=== PATIENT | female | born 1965 | race African-American/Black ===

== ENCOUNTER 2016-10-25 12:09 | Emergency (ER) | payer SELFPAY ==
[~2016-10-25] VITALS: Ht 165.1 cm; Wt 113.6 kg
[~2016-10-25 12:09] MED LIST: DIAZ5 PO; LORTA5 PO
[2016-10-25 12:11] VITALS: BP 199/88; PULSE 80; RESP 20; TEMP 98.2; O2SAT 97
--- NOTE | 2016-10-25 13:05 | PD ---
HPI Chief Complaint: Back pain Time Seen by Provider: 13:03 Travel History International Travel<30 days: No Contact w/Intl Traveler<30days: No Traveled to known affect area: No History of Present Illness HPI 50-year-old female with history of depression presents to the ED for evaluation of "months long" history of low back pain. Patient can identify no acute injury or overuse at the onset of symptoms. She states that the pain radiates down the legs bilaterally, is worse on the left than the right. She endorses tingling in the left fourth and fifth toes. She denies saddle anesthesia, incontinence, numbness, tingling, weakness, limitations to range of motion of the extremity. She has been treating with [id number] medications without improvement of symptoms. [facility] Past Medical History Depression: Yes Diabetes: No Diminished Hearing: No ?: Not : 3 Para: 2 Miscarriage: 1 : 2 Past Surgical History Section: Yes Social History Alcohol Use: Yes (occasionaly) Tobacco Use: No Substance Use: No Allergies-Medications (Allergen,Severity, Reaction): Coded Allergies: Latex (Unverified Allergy, Unknown, 10/25/16) Reported Meds & Prescriptions Reported Meds & Active Scripts Active Naprosyn (Naproxen) 500 Mg Tab 500 Mg PO BID Flexeril (Cyclobenzaprine HCl) 10 Mg Tab 10 Mg PO TID Review of Systems Except as stated in HPI: all other systems reviewed are Neg Physical Exam Narrative GENERAL: Well-nourished, well-developed obese black female in no acute distress. SKIN: Warm and dry. HEAD: Normocephalic. EYES: No scleral icterus. No injection or drainage. NECK: Supple, trachea midline. No JVD or lymphadenopathy. CARDIOVASCULAR: Regular rate and rhythm without murmurs, gallops, or rubs. 2+ DP and radial pulses bilaterally. RESPIRATORY: Breath sounds equal bilaterally. No accessory muscle use. GASTROINTESTINAL: Abdomen protuberant, soft, non-tender, nondistended. Active bowel sounds. MUSCULOSKELETAL: No cyanosis, or edema. Patient maintains strong, active, painless motion the bilateral lower extremities. Normal patellar reflexes. NEUROLOGICAL: Awake and alert. Cranial nerves II through XII intact. Motor and sensory grossly within normal limits. 5/5 dorsi flexion, plantar flexion, knee flexion, hip flexion. Normal speech. BACK: No obvious deformity. No CVA tenderness. No midline tenderness to palpation. Tender to palpation of the paraspinal musculature in the lumbar area on the left side. Data Data Last Documented VS Vital Signs Date Time Temp Pulse Resp B/P Pulse Ox O2 Delivery O2 Flow Rate FiO2 10/25/16 12:11 98.2 80 20 199/88 97 Orders Ketorolac Inj (Toradol Inj) (10/25/16 13:30) Orphenadrine Inj (Norflex Inj) (10/25/16 13:30) MDM Medical Decision Making Medical Screen Exam Complete: Yes Emergency Medical Condition: Yes Differential Diagnosis Lumbago versus radiculopathy versus acute on chronic back pain versus sciatica versus muscle spasm versus other Narrative Course 50-year-old female with history of depression presents to the ED for evaluation of "months long" history of low back pain. Patient can identify no acute injury or overuse at the onset of symptoms. Pain radiates the legs bilaterally , left greater than right. Endorses tingling in the left fourth and fifth toes. Denies saddle anesthesia, incontinence numbness, tingling, weakness of the lower extremity. Vitals reviewed. Physical exam reveals an obese black female in no acute distress. No midline tenderness to palpation. Mild tenderness to palpation of the paraspinal musculature in the left lumbar area. 5/5 strength on dorsiflexion, plantar flexion, knee flexion and hip flexion. Normal patellar reflexes bilaterally. Sensation intact to light touch distally. The patient initially told triage that she was having abdominal pain. I questioned her about this extensively. She denies abdominal pain. Abdominal exam is unremarkable. This is sciatica, possibly an element of muscle spasm. Patient was administered IM Toradol, Flexeril. She was provided with prescriptions for a brief course of Flexeril and anti-inflammatories. She is instructed to return to normal, gentle activity as tolerated, cautioned not to spend much time in bed, follow up with the primary care provider and neurologist should symptoms persist. We discussed red flag symptoms, reasons to return to the ED. She indicated understanding of the instructions. She is amenable to plan of care. She is stable and discharged home. Diagnosis Primary Impression: Sciatic neuralgia Qualified Code: M54.31 - Bilateral sciatica Referrals: Neurologist Primary Care Physician Patient Instructions: General Instructions, Sciatica (ED) Additional Instructions: Rest, hydrate. Resume normal, gentle activities as tolerated. No strenuous physical activities, heavy weight bearing for the next few days A mixture of rest and activity as best for back pain. Do not lie in bed all day , this can make back pain worse. Take Naprosyn as prescribed beginning tomorrow. Take Flexeril as prescribed. Do not drive while taking Flexeril Applying ice or heat to areas with sore muscles may help to improve your pain. Do not apply ice/ heat for longer than 20 m/h. Follow-up with your primary care provider or neurologist this week. Return to the ED should red flag symptoms occur as discussed. Return to the ED for any urgent or emergent medical condition. Med/Other Pt SpecificInfo: Prescription(s) given Scripts Naproxen (Naprosyn)500 Mg [id number] Mg PO BID #20 TAB Ref 0 Prov:Hebert Joseph MD 10/25/16 Cyclobenzaprine (Flexeril)10 Mg Tab10 Mg PO TID #15 TAB Ref 0 Prov:Hebert Joseph MD 10/25/16 Disposition: 01 DISCHARGE HOME Condition: Stable Umm Munson Oct 25, 2016 13:04
[2016-10-25] MEDS ORDERED: CYCL1TAB29 PO (13:27)
[2016-10-25] MEDS ORDERED: NAPR500 PO (13:27)
[2016-10-25] MEDS ORDERED: ORPHENADRINE INJ 60 MG/2 ML AMP IM ONE (13:30)
[2016-10-25] MEDS ORDERED: KETOROLAC TROMETHAMINE 60 MG/2 ML (IM) VIAL IM ONE (13:30)
== END 2016-10-25 14:06 | disposition home or self-care (01) ==
LOC: NETRI 12:09
DX: M54.31 Sciatica, right side (principal); M54.32 Sciatica, left side; Z86.59 Personal history of other mental and behavioral disorders
CPT/HCPCS: 96372; 99283; J1885; J2360

== ENCOUNTER 2017-02-25 01:14 | Emergency (ER) | payer SELFPAY ==
[~2017-02-25] VITALS: Ht 165.1 cm; Wt 150.0 kg
[~2017-02-25 01:14] MED LIST changes: +CYCL1TAB29 PO; -DIAZ5 PO; -LORTA5 PO; +NAPR500 PO
[2017-02-25 01:16] VITALS: BP 230/101; PULSE 103; RESP 20; TEMP 98.9; O2SAT 97
[2017-02-25 02:15] VITALS: BP 227/92
--- NOTE | 2017-02-25 02:38 | PD ---
HPI Chief Complaint: Pain: Acute or Chronic Time Seen by Provider: 02:15 Travel History International Travel<30 days: No Contact w/Intl Traveler<30days: No Traveled to known affect area: No History of Present Illness HPI 51-year-old female here for evaluation of right hip pain. The patient states that the pain has been going on for a long time, however tonight when she asked her neighbor for an aspirin, her neighbor told her that she did not have an aspirin and that she should go to the emergency department for evaluation of this hip pain. The patient denies trauma. Patient reports the pain is constant , worse with movement and palpation as well as ambulation. She is also had some dysuria and increased urinary frequency. No urinary incontinence or retention. No paresthesias or motor deficits. Blood pressure is notably elevated. Patient reports history of high blood pressure, however she does not follow with a primary care physician. She denies chest pain or dyspnea. No headache or visual disturbances. No vaginal discharge or bleeding. PFSH Past Medical History Medical History: Denies Significant Hx Depression: Yes Diabetes: No Diminished Hearing: No ?: Not Menopausal: Yes : 3 Para: 2 Miscarriage: 1 : 2 Past Surgical History Surgical History: No Previous Surgery Section: Yes Social History Alcohol Use: Yes (occasionaly) Tobacco Use: No Substance Use: No Allergies-Medications (Allergen,Severity, Reaction): Coded Allergies: Latex (Unverified Allergy, Unknown, 02/25/17) Reported Meds & Prescriptions Reported Meds & Active Scripts Active Review of Systems Except as stated in HPI: all other systems reviewed are Neg Physical Exam Narrative GENERAL: Well-developed, well-nourished, overweight, comfortable, no apparent distress. SKIN: Focused skin assessment warm/dry. No rash. HEAD: Atraumatic. Normocephalic. EYES: Pupils equal and round. No scleral icterus. No injection or drainage. ENT: Mucous membranes pink and moist. NECK: Trachea midline. No JVD. CARDIOVASCULAR: Regular rate and rhythm. RESPIRATORY: No accessory muscle use. Clear to auscultation. Breath sounds equal bilaterally. GASTROINTESTINAL: Abdomen soft, non-tender, nondistended. MUSCULOSKELETAL: No obvious deformities. Right anterior hip joint tenderness. No midline vertebral step-off or tenderness. No clubbing. No cyanosis. No edema. NEUROLOGICAL: Awake and alert. No obvious cranial nerve deficits. Motor grossly within normal limits. Normal speech. Normal motor/sensory to bilateral lower extremities. Great toe extension present bilaterally. PSYCHIATRIC: Appropriate mood and affect; insight and judgment normal. Data Data Last Documented VS Vital Signs Date Time Temp Pulse Resp B/P Pulse Ox O2 Delivery O2 Flow Rate FiO2 02/25/17 02:15 227/92 02/25/17 01:16 98.9 103 20 97 Room Air Orders Morphine Inj (Morphine Inj) (02/25/17 02:45) Urinalysis - C+S If Indicated (02/25/17 02:32) Oxycodone-Acetamin 10-325 Mg (Percocet 1 (02/25/17 03:00) Hip, Uni(Ap&Lat) W Ap Pelvis (02/25/17 ) Labs Laboratory Tests Test 02/25/17 02:45 Urine Color LIGHT-YELLOW Urine Turbidity HAZY Urine pH 5.5 Urine Specific [place] 1.007 Urine Protein NEG mg/dL Urine Glucose (UA) NEG mg/dL Urine Ketones NEG mg/dL Urine Occult Blood NEG Urine Nitrite NEG Urine Bilirubin NEG Urine Urobilinogen LESS THAN 2.0 MG/DL Urine Leukocyte Esterase NEG Urine RBC LESS THAN 1 /hpf Urine WBC 1 /hpf Urine Squamous Epithelial 1 /hpf Cells Microscopic Urinalysis Comment CULT NOT INDICATED MDM Medical Decision Making Medical Screen Exam Complete: Yes Emergency Medical Condition: Yes Differential Diagnosis Arthritis, sciatica, UTI, hip fracture, uncontrolled hypertension, Narrative Course Vital signs reviewed. Patient is not displaying any signs or symptoms of hypertensive crisis. Right hip and pelvic x-ray read as unremarkable study. Patient was given one Percocet and is feeling significantly better. She is ambulating without difficulty and without assistance. I believe a lot of her symptoms are secondary to her being overweight. I do not believe that there is an acute intra-abdominal surgical process toward CT abdomen pelvis. Her abdomen exam shows no tenderness, no peritoneal signs. She is stable for discharge home with outpatient follow-up with a primary care physician this week. She was informed on when to return to the emergency department patient verbalizes understanding and agreement with plan. Diagnosis Primary Impression: Right hip pain Referrals: [facility] 3 days Primary Care Physician 3 days Additional Instructions: Follow-up with a primary care physician this week. Return to the emergency department for worsening symptoms or any other concerns. Scripts Oxycodone-Acetaminophen (Percocet)10-325 mg Tab1 Tab PO Q6H PRN (PAIN) #12 TAB Ref 0 Prov:Domo Hallman MD 02/25/17 Disposition: 01 DISCHARGE HOME Condition: Stable Domo Hallman MD Feb 25, 2017 02:38
[2017-02-25] MEDS ORDERED: MORPHINE SULFATE 8 MG/ML INJ IM ONE (02:45)
[2017-02-25] MEDS ORDERED: oxyCODONE/ACETAMINOPHEN 10 MG/325 MG TAB PO ONE (03:00)
[2017-02-25 03:05] LABS: BLOOD, URINE NEG (NEG); COMMENT (UR) CULT NOT INDICATED; CULTURE IF INDICATED CULT NOT INDICATED; GLUCOSE,URINE NEG (NEG); KETONE, URINE NEG (NEG); NITRITE,URINE NEG (NEG); PH, URINE 5.5 (5.0-8.5); SQUAMOUS EPITHELIAL CELL URINE 1 /hpf (0-5); URINE COLOR LIGHT-YELLOW (YELLW/STRAW)
--- NOTE | 2017-02-25 03:15 | RADRPT ---
EXAM DATE/TIME: 02/25/2017 03:06 [facility] COMPARISON: No previous studies available for comparison. INDICATIONS : Right hip pain. MEDICAL HISTORY : None. SURGICAL HISTORY : None. ENCOUNTER: Initial ACUITY: 3 days PAIN SCORE: 6/10 LOCATION: Right Hip FINDINGS: No definite fractures, or dislocations are identified. No definite lytic or sclerotic lesion is seen . The joint space is well maintained. CONCLUSION: Unremarkable study. Malaika Good MD on February 25, 2017 at 3:13 Board Certified Radiologist. This report was verified electronically.
[2017-02-25] MEDS ORDERED: PERC10TA27 PO (03:53)
[2017-02-25 04:09] VITALS: BP 190/89; PULSE 79; RESP 14; O2SAT 96
== END 2017-02-25 04:10 | disposition home or self-care (01) ==
LOC: NEPD 01:14 → NEPE 04:10
DX: M25.551 Pain in right hip (principal)
CPT/HCPCS: 73502; 81001; 99284

== ENCOUNTER 2017-03-13 11:23 | Emergency (ER) | payer SELFPAY ==
[~2017-03-13] VITALS: Ht 165.1 cm; Wt 130.0 kg
[~2017-03-13 11:23] MED LIST changes: -CYCL1TAB29 PO; -NAPR500 PO; +PERC10TA27 PO
[2017-03-13 11:24] VITALS: BP 183/99; PULSE 110; RESP 20; TEMP 98.5; O2SAT 99
[2017-03-13 15:58] VITALS: BP 152/68; PULSE 78; RESP 18; O2SAT 99
--- NOTE | 2017-03-13 16:11 | PD ---
HPI Chief Complaint: Back/ Neck Pain or Injury Time Seen by Provider: 15:18 Travel History International Travel<30 days: No Contact w/Intl Traveler<30days: No Traveled to known affect area: No History of Present Illness HPI 51-year-old female complains of low back pain. Patient states that she has persistent low back pain for the past few months. Patient was seen in emergency room 2 weeks ago with right hip pain and low back pain. X-ray of the right hip shows no acute bony injury. Patient was given morphine injection, oxycodone by mouth and discharged home with prescription for oxycodone. Patient states that she's had persistent low back pain despite the pain medication. Patient denies any headache. Patient denies any chest pain or shortness of breath. Patient denies abdominal pain. Patient denies any focal weakness or numbness of extremity. Patient states the pain aching pain as sharp pain localized to low back area. Patient denies any pain radiation. Patient states the pain is worse with movement. On a scale of 1-10 the pain is an 8. PFSH Past Medical History Medical History: Denies Significant Hx Depression: Yes Diabetes: No Diminished Hearing: No Tetanus Vaccination: < 5 Years Influenza Vaccination: No ?: Not Menopausal: Yes : 3 Para: 2 Miscarriage: 1 : 2 Past Surgical History Surgical History: No Previous Surgery Section: Yes Social History Alcohol Use: No Tobacco Use: No Substance Use: No Allergies-Medications (Allergen,Severity, Reaction): Coded Allergies: Latex (Unverified Allergy, Unknown, 03/13/17) Reported Meds & Prescriptions Reported Meds & Active Scripts Active No Active Prescriptions or Reported Medications Review of Systems General / Constitutional: No: Fever Eyes: No: Visual changes HENT: No: Headaches Cardiovascular: No: Chest Pain or Discomfort Respiratory: No: Shortness of Breath Gastrointestinal: No: Abdominal Pain Genitourinary: No: Dysuria Musculoskeletal: No: Pain Skin: No Rash Neurologic: No: Weakness Psychiatric: No: Depression Endocrine: No: Polydipsia Hematologic/Lymphatic: No: Easy Bruising Physical Exam Narrative GENERAL: Well-nourished, well-developed patient. SKIN: Focused skin assessment warm/dry. HEAD: Normocephalic. EYES: No scleral icterus. No injection or drainage. NECK: Supple, trachea midline. No JVD or lymphadenopathy. CARDIOVASCULAR: Regular rate and rhythm without murmurs, gallops, or rubs. RESPIRATORY: Breath sounds equal bilaterally. No accessory muscle use. GASTROINTESTINAL: Abdomen soft, non-tender, nondistended. MUSCULOSKELETAL: No cyanosis, or edema. BACK: Patient has moderate tenderness on palpation lower lumbar area, without obvious deformity. No CVA tenderness. Negative straight leg raising. Neurologic exam normal. Data Data Last Documented VS Vital Signs Date Time Temp Pulse Resp B/P Pulse Ox O2 Delivery O2 Flow Rate FiO2 03/13/17 15:58 78 18 152/68 99 Room Air 03/13/17 11:24 98.5 Orders Ketorolac Inj (Toradol Inj) (03/13/17 16:15) Spine, Lumbar - Ltd (Ap & Lat) (03/13/17 16:04) Urinalysis - C+S If Indicated (03/13/17 16:08) Labs Laboratory Tests Test 03/13/17 16:20 Urine Color YELLOW Urine Turbidity HAZY Urine pH 5.5 Urine Specific [place] 1.026 Urine Protein NEG mg/dL Urine Glucose (UA) NEG mg/dL Urine Ketones NEG mg/dL Urine Occult Blood NEG Urine Nitrite NEG Urine Bilirubin NEG Urine Urobilinogen LESS THAN 2.0 MG/DL Urine Leukocyte Esterase NEG Urine RBC 1 /hpf Urine WBC 2 /hpf Urine Squamous Epithelial 2 /hpf Cells Urine Mucus FEW /lpf Microscopic Urinalysis Comment CULT NOT INDICATED MDM Medical Decision Making Medical Screen Exam Complete: Yes Emergency Medical Condition: Yes Interpretation(s) 1656 PM. X-ray lumbar spine shows DJD changes. UA is negative. Differential Diagnosis Differential diagnosis including strain, fracture, HNP Narrative Course 51-year-old female with low back pain. Toradol 60 mg IM. Diagnosis Primary Impression: Lumbar strain Qualified Code: S39.012A - Lumbar strain, initial encounter Patient Instructions: General Instructions Additional Instructions: Take medications as directed. Moist heat to her back. Follow-up with orthopedist and local physician. Avoid heavy lifting. Med/Other Pt SpecificInfo: Prescription(s) given Scripts Cyclobenzaprine (Flexeril)10 Mg Tab10 Mg PO TID #90 TAB Prov:Teddy Narayan MD 03/13/17 Meloxicam (Mobic)15 Mg Tab15 Mg PO DAILY #30 TAB Prov:Teddy Narayan MD 03/13/17 Disposition: 01 DISCHARGE HOME Condition: Stable Teddy Narayan MD Mar 13, 2017 16:11
[2017-03-13] MEDS ORDERED: KETOROLAC TROMETHAMINE 60 MG/2 ML (IM) VIAL IM ONE (16:15)
--- NOTE | 2017-03-13 16:41 | RADRPT ---
EXAM DATE/TIME: 03/13/2017 16:15 [facility] COMPARISON: No previous studies available for comparison. INDICATIONS : Chronic back pain for months. MEDICAL HISTORY : None. SURGICAL HISTORY : None. ENCOUNTER: Initial ACUITY: 2 months PAIN SCORE: 0/10 LOCATION: Bilateral l-spine FINDINGS: Two view examination was performed. There are five non-rib bearing vertebral bodies. The vertebral bodies are in normal alignment without evidence of subluxation or scoliosis. Minimal marginal osteoph ytes are seen at the L3-L5 levels. The disc spaces are maintained. The pedicles are intact. Bony mi neralization is normal. No fracture is identified. CONCLUSION: Minimal marginal osteophytes. Jason Woodruff MD on March 13, 2017 at 16:38 Board Certified Radiologist. This report was verified electronically.
[2017-03-13 16:48] LABS: BLOOD, URINE NEG (NEG); COMMENT (UR) CULT NOT INDICATED; CULTURE IF INDICATED CULT NOT INDICATED; GLUCOSE,URINE NEG (NEG); KETONE, URINE NEG (NEG); MUCUS URINE FEW /lpf (OCC); NITRITE,URINE NEG (NEG); PH, URINE 5.5 (5.0-8.5); SQUAMOUS EPITHELIAL CELL URINE 2 /hpf (0-5); URINE COLOR YELLOW (YELLW/STRAW)
[2017-03-13] MEDS ORDERED: MOBI15TA PO (17:00)
[2017-03-13] MEDS ORDERED: CYCL1TAB29 PO (17:00)
== END 2017-03-13 17:17 | disposition home or self-care (01) ==
LOC: NEPD 11:23
DX: S39.012A Strain of muscle, fascia and tendon of lower back, initial encounter (principal); X58.XXXA Exposure to other specified factors, initial encounter
CPT/HCPCS: 72100; 81001; 96372; 99284; J1885